=== PATIENT | male | born 1985 | race African-American/Black ===

== ENCOUNTER → 2017-06-09 | Outpatient (CLI) | payer MEDICAID, OTHER ==
[~2017-06-09] MED LIST: IBUP-232 PO
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
== END ==
LOC: HRAD 10:44
PROVIDERS: ATTEND Nurse Practitioner Family
DX: R10.9 Unspecified abdominal pain (principal)
CPT/HCPCS: 74020

== ENCOUNTER → 2017-12-26 | Outpatient (CLI) | payer OTHER ==
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
== END ==
LOC: HRAD 11:59
PROVIDERS: ATTEND Nurse Practitioner Family
DX: R10.9 Unspecified abdominal pain (principal); R07.89 Other chest pain
CPT/HCPCS: 71046; 74019